=== PATIENT | male | born 1980 | race Caucasian/White ===

== ENCOUNTER 2019-04-04 13:40 | Emergency (ER) | payer OTHER ==
[~2019-04-04] VITALS: Ht 177 cm; Wt 116.3 kg
[2019-04-04] MEDS ORDERED: NITROGLYCERIN 0.4 MG SL TABS BTL 25'S SL PRN (14:00)
[2019-04-04] MEDS ORDERED: ASPIRIN 81 MG CHEW (CHILDREN'S ASA) PO ONE (14:00)
--- NOTE | 2019-04-04 14:08 | ED Chest Pain ---
General Chief Complaint: Upper Extremity Stated Complaint: LT SHOULDER PAIN/NUMBNESS Nursing Triage Note: Patient reports sudden onset of numbness and mild pain under his left armpit that radiates to his upper left back and down his left arm. He rates his pain at 2/10, denies any nausea/shortness of breath, palpitations, etc. States family history of hypertension, but no other heart disease, denies personal history of heart disease. Patient denies any recent injury to shoulder. 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 He did not feel short of breath having any sweats or nausea. He does not have a history of coronary disease or heart disease. He does not take any medications but he endorses a history of high blood pressure. He denies history of diabetes hyperlipidemia or smoking. He drinks about a beer a day on average. He is in no recent trauma. He is not lifting anything heavy. There is no rash itching or burning sensation. He is not having any pain in his neck or back. He was not doing anything strenuous when it started just driving. It started about an hour prior to arrival and has gradually gotten better. He rates it now about a 2 out of 10 with still some numbness in his left hand. His family history does not include early onset coronary disease or sudden cardiac . He has not had any fevers or chills, runny nose cough or shortness of breath. No nausea vomiting or diarrhea. Allergies and Home Medications Allergies Coded Allergies: No Known Drug Allergies (Unverified , 04/04/19) Patient Home Medication List Home Medication List Reviewed: Yes Review of Systems Review of Systems Constitutional: No chills, No diaphoresis, No dizziness, No fever, No malaise EENTM: No Blurred Vision, No Double Vision Respiratory: Denies Cough, Denies Shortness of Air, Denies Wheezing Cardiovascular: See HPI, Chest Pain; Denies Edema, Denies Lightheadedness, Denies Palpitations Gastrointestinal: Denies Abdominal Pain, Denies Constipated, Denies Diarrhea, Denies Nausea Genitourinary: Denies Burning, Denies Discharge Musculoskeletal: No back pain, No joint pain Skin: No pruritus, No rash Psychiatric/Neurological: Denies Headache, Denies Numbness, Denies Paresthesia All Other Systems Reviewed Negative Unless Noted: Yes Past Sltzmku-Ahzwas-Nlkzse Hx Patient Social History Alcohol Use: Regular Use Number of Drinks Today: 0 Alcohol Beverage of Choice: Beer (1/day) Recreational Drug Use: No Smoking Status: Never a Smoker Recent Foreign Travel: No Contact w/Someone Who Travel: No Recent Infectious Disease Expo: No Physical Exam Vital Signs Vital Signs - First Documented Capillary Refill : Less Than 3 Seconds Height, Weight, BMI Height: '" Weight: lbs. oz. kg; 37.00 BMI Method: General Appearance: No Apparent Distress, WD/WN HEENT: PERRL/EOMI, Pharynx Normal, Moist Mucous Membranes Neck: Full Range of Motion, Normal Inspection, Non Tender, Supple Respiratory: No Chest Non Tender (direct palpation just medial to the shoulder re-creates the pain both anteriorly and posteriorly); Lungs Clear, Normal Breath Sounds, No Accessory Muscle Use, No Respiratory Distress Cardiovascular: Regular Rate, Rhythm, No Edema, No Murmur, Normal Peripheral Pulses Extremity: Normal Capillary Refill, Normal Inspection, No Pedal Edema Neurologic/Psychiatric: Alert, Oriented x3, No Motor/Sensory Deficits, Normal Mood/Affect Skin: Normal Color, Warm/Dry Progress/Results/Core Measures Results/Orders Lab Results Laboratory Tests Test 04/04/19 14:00 Range/Units White Blood Count 6.2 4.3-11.0 10^3/uL Red Blood Count 4.87 4.35-5.85 10^6/uL Hemoglobin 15.2 13.3-17.7 G/DL Hematocrit 44 40-54 % Mean Corpuscular Volume 91 80-99 FL Mean Corpuscular Hemoglobin 31 25-34 PG Mean Corpuscular Hemoglobin Concent 34 32-36 G/DL Red Cell Distribution Width 11.9 10.0-14.5 % Platelet Count 304 130-400 10^3/uL Mean Platelet Volume 9.5 7.4-10.4 FL Neutrophils (%) (Auto) 75 42-75 % Lymphocytes (%) (Auto) 16 12-44 % Monocytes (%) (Auto) 6 0-12 % Eosinophils (%) (Auto) 2 0-10 % Basophils (%) (Auto) 1 0-10 % Neutrophils # (Auto) 4.7 1.8-7.8 X 10^3 Lymphocytes # (Auto) 1.0 1.0-4.0 X 10^3 Monocytes # (Auto) 0.4 0.0-1.0 X 10^3 Eosinophils # (Auto) 0.1 0.0-0.3 10^3/uL Basophils # (Auto) 0.1 0.0-0.1 10^3/uL Prothrombin Time 13.6 12.2-14.7 SEC INR Comment 1.0 0.8-1.4 Activated Partial Thromboplast Time 27 24-35 SEC Sodium Level 137 135-145 MMOL/L Potassium Level 4.0 3.6-5.0 MMOL/L Chloride Level 99 98-107 MMOL/L Carbon Dioxide Level 25 21-32 MMOL/L Anion Gap 13 5-14 MMOL/L Blood Urea Nitrogen 11 7-18 MG/DL Creatinine 0.88 0.60-1.30 MG/DL Estimat Glomerular Filtration Rate > 60 BUN/Creatinine Ratio 13 Glucose Level 114 H 70-105 MG/DL Calcium Level 9.3 8.5-10.1 MG/DL Corrected Calcium 8.5-10.1 MG/DL Magnesium Level 1.9 1.6-2.4 MG/DL Total Bilirubin 0.7 0.1-1.0 MG/DL Aspartate Amino Transf (AST/SGOT) 31 5-34 U/L Alanine Aminotransferase (ALT/SGPT) 33 0-55 U/L Alkaline Phosphatase 51 40-136 U/L Myoglobin 57.2 10.0-92.0 NG/ML Troponin I < 0.30 <0.30 NG/ML Pro-B-Type Natriuretic Peptide 23.5 <75.0 PG/ML Total Protein 8.5 H 6.4-8.2 GM/DL Albumin 4.7 H 3.2-4.5 GM/DL My Orders Orders - JOHN OLIVARES Cbc With Automated Diff (04/04/19 14:00) Magnesium (04/04/19 14:00) Ekg Tracing (04/04/19 14:00) Comprehensive Metabolic Panel (04/04/19 14:00) Myoglobin Serum (04/04/19 14:00) Protime With Inr (04/04/19 14:00) Partial Thromboplastin Time (04/04/19 14:00) O2 (04/04/19 14:00) Monitor-Rhythm Ecg Trace Only (04/04/19 14:00) Lipid Panel (04/05/19 06:00) Aspirin Chewable Tablet (Baby Aspirin Ch (04/04/19 14:00) Nitroglycerin 0.4 Mg Btl 25's (Nitrostat (04/04/19 14:00) Ed Iv/Invasive Line Start (04/04/19 14:00) Troponin I Fs (04/04/19 14:00) Probnp Fs (04/04/19 14:00) Chest Pa/Lat (2 View) (04/04/19 14:00) Medications Given in ED Current Medications Medications Dose Ordered Sig/Cali Route Start Time Stop Time Status Last Admin Dose Admin Aspirin 324 mg ONCE ONCE PO 04/04/19 14:00 04/04/19 14:02 DC 04/04/19 14:12 324 MG Nitroglycerin 0.4 mg UD PRN SL 04/04/19 14:00 04/04/19 14:12 0.4 MG Vital Signs/I&O 04/04/19 04/04/19 13:45 13:45 Temp 36.7 Pulse 86 Resp 18 B/P (MAP) 289/119 (175) Pulse Ox 98 O2 Delivery Room Air Room Air Blood Pressure Mean: 175 POS Progress Progress Note #1: Time: 14:07 Progress Note Musculoskeletal most likely however we can consider pericarditis, coronary/vasospasm, shingles, bronchospasm or pulmonary infiltrate. We can rule most these dangerous things out with a simple cardiac workup including labs, troponin, EKG, 2 view chest x-ray. Minor ST changes on the anterior leads may point to pericarditis/myocarditis versus early repolarization pattern. He presented around 200/115 blood pressure. This is a concerning blood pressure and he multiple times denied any historical use of methamphetamines or cocaine. Plan to keep him on a monitor check a blood pressure routinely and give him some nitroglycerin and see if that makes any difference in his 2 out of 10 pain as well as bringing his blood pressure down. Hypertensive urgency is also in the differential. Progress Note #2: Time: 14:26 Progress Note After the nitroglycerin he rates his pain is barely there, half of a point out of 10. His blood pressure has come down from 289/119 initially to 175/93. We will not plan to drop his blood pressure any more acutely. If the rest of his workup is negative we will probably put him out with 5 of amlodipine and follow- up with the special population paraprofessional. Progress Note #3: Time: 14:52 Progress Note BP is 144/85. Lab imaging and EKG are all normal. I suggest amlodipine 2.5 mg and follow-up with cardiology for possible hypertensive urgency. Initial ECG Impression Date: Apr 04, 2019 Initial ECG Impression Time: 13:49 Initial ECG Rate: 67 Initial ECG Rhythm: Normal Sinus Initial ECG Intervals: Normal Initial ECG Impression: Normal, Nonspecific Changes Initial ECG Comparisson: No Previous ECG Available Comment No clinically significant ST elevation or depression. There is a half a block of ST elevation in V1 and one half blocks in lead V2. Diagnostic Imaging Diagonstic Imaging: Xray Plain Films/CT/US/NM/MRI: chest (2v) Comments No acute cardiopulmonary processes. No cardiomegaly. NAME: DAMIAN MCDUFFIE [facility] REC#: [id number] PT STATUS: REG ER : 1980 PHYSICIAN: JOHN OLIVARES MD ADMIT DATE: 04/04/19/ER FS Draft POSDate of Exam:04/04/19 CHEST PA/LAT (2 VIEW) Indication: Chest and left arm pain. Comparison: None. Discussion: Two views of the chest were obtained. Normal heart size. No focal consolidation, pleural fluid, or pneumothorax. No osseous abnormality. Impression: 1. Negative chest. Dictated on workstation # [id number] Dict: 04/04/19 1421 Trans: 04/04/19 1422 KB [id number] Interpreted by: MAXIMUS TORRES MD Electronically signed by: Reviewed: Reviewed by Me Departure Impression Primary Impression: Chest pain Qualified Codes: R07.9 - Chest pain, unspecified Additional Impression: Hypertensive urgency Disposition: HOME, SELF-CARE Condition: Stable Departure-Patient Inst. Decision time for Depature: 14:53 Referrals: COURTNEY JACKSON MD [facility] NO,LOCAL PHYSICIAN (PCP) Primary Care Physician Patient Instructions: High Blood Pressure Emergencies, High Blood Pressure (DC) Add. Discharge Instructions: I suspect that maybe your discomfort is related to your blood pressure being so elevated. It's also possible that there could be a musculoskeletal reason which should spontaneously improve over time. For your pain you should use Tylenol instead of ibuprofen for now as this will have no effect on your blood pressure. I would also recommend amlodipine at a low dose of 2.5 mg once a day. Tomorrow call Dr. Jackson, cardiology and [facility] and request a follow- up appointment this week. Alternatively establish care with a primary care doctor and follow-up this week. Return to the ER if your symptoms return or worsen. All discharge instructions reviewed with patient and/or family. Voiced understanding. Scripts Amlodipine Besylate (Amlodipine Besylate) 2.5 Mg Tablet 2.5 MG PO DAILY for 30 Days, #30 TAB 0 Refills Prov: JOHN OLIVARES 04/04/19 Work/School Note: Work Release Form Date Seen in the Emergency Department: Apr 04, 2019 Return to Work: Apr 05, 2019 Restrictions: No Restrictions Copy Copies To 1: COURTNEY JACKSON [facility] Apr 04, 2019 14:08 POS
[2019-04-04 14:11] LABS: HEMOGLOBIN 15.2 G/DL (13.3-17.7); MEAN CORPUSCULAR HEMOGLOBIN 31 PG (25-34); WHITE BLOOD COUNT 6.2 10^3/uL (4.3-11.0)
[2019-04-04 14:12] LABS: BASOPHILS # (AUTO) 0.1 10^3/uL (0.0-0.1); BASOPHILS % (AUTO) 1 % (0-10); EOSINOPHILS # (AUTO) 0.1 10^3/uL (0.0-0.3); EOSINOPHILS % (AUTO) 2 % (0-10); HEMATOCRIT 44 % (40-54); LYMPHOCYTES % (AUTO) 16 % (12-44); MEAN CORPUSCULAR HGB CONC 34 G/DL (32-36); MEAN CORPUSCULAR VOLUME 91 FL (80-99); MEAN PLATELET VOLUME 9.5 FL (7.4-10.4); MONOCYTES # (AUTO) 0.4 X 10^3 (0.0-1.0); MONOCYTES % (AUTO) 6 % (0-12); NEUTROPHILS # (AUTO) 4.7 X 10^3 (1.8-7.8); NEUTROPHILS % (AUTO) 75 % (42-75); PLATELET COUNT 304 10^3/uL (130-400); RED CELL DISTRIBUTION WIDTH 11.9 % (10.0-14.5)
--- NOTE | 2019-04-04 14:23 | Diagnostic Imaging Report ---
Indication: Chest and left arm pain. Comparison: None. Discussion: Two views of the chest were obtained. Normal heart size. No focal consolidation, pleural fluid, or pneumothorax. No osseous abnormality. Impression: 1. Negative chest. Dictated by: Dictated on workstation # [id number]
[2019-04-04 14:34] LABS: PROTHROMBIN TIME PATIENT 13.6 SEC (12.2-14.7)
[2019-04-04 14:41] LABS: BUN/CREATININE RATIO 13; CALCIUM 9.3 MG/DL (8.5-10.1); CARBON DIOXIDE 25 MMOL/L (21-32); CHLORIDE 99 MMOL/L (98-107); CREATININE SERUM 0.88 MG/DL (0.60-1.30); GFR ESTIMATED > 60; GLUCOSE 114 MG/DL (70-105); SODIUM 137 MMOL/L (135-145)
[2019-04-04 14:42] LABS: ALANINE AMINOTRANSFERASE 33 U/L (0-55); ALBUMIN 4.7 GM/DL (3.2-4.5); ALKALINE PHOSPHATASE 51 U/L (40-136); BILIRUBIN,TOTAL 0.7 MG/DL (0.1-1.0); MAGNESIUM 1.9 MG/DL (1.6-2.4); TOTAL PROTEIN 8.5 GM/DL (6.4-8.2)
[2019-04-04] MEDS ORDERED: AMLO2.5T4 PO (14:56)
[2019-04-04 15:11] VITALS: BP 144/85
== END 2019-04-04 15:05 | disposition home or self-care (01) ==
LOC: ER FS 13:42
DX: R07.9 Chest pain, unspecified (principal); I16.0 Hypertensive urgency
CPT/HCPCS: 36415; 71046; 80053; 83735; 83874; 83880; 84484; 85025; 85610; 85730; 93005; 93041